=== PATIENT | male | born 1960 | race American Indian/Alaskan Native ===

== ENCOUNTER 2022-07-13 10:18 | Outpatient (CLI) | payer MEDICARE, MEDICAID ==
[~2022-07-13] VITALS: Ht 175.3 cm; Wt 117.9 kg
[2022-07-13] MEDS ORDERED: HYDR25TA5 PO (11:08)
[2022-07-13] MEDS ORDERED: PIOG45TA65 PO (11:08)
[2022-07-13] MEDS ORDERED: ENAL10TA19 PO (11:08)
[2022-07-13] MEDS ORDERED: LABE100T8 PO (11:08)
[2022-07-13] MEDS ORDERED: METF-438 PO (11:08)
[2022-07-13] MEDS ORDERED: ATOR40TA72 PO (11:08)
[2022-07-13] MEDS ORDERED: DULA1.5P SQ (11:08)
[2022-07-13] MEDS ORDERED: HYDR-3972 PO (11:08)
[2022-07-13] MEDS ORDERED: EMPA10TA PO (11:08)
[2022-07-13 11:34] LABS: BASOPHILS # (AUTO) 0.1 X10'3 (0-0.2); EOSINOPHILS # (AUTO) 0.1 X10'3 (0-0.9); LYMPHOCYTES # (AUTO) 2.5 X10'3 (1.1-4.8); LYMPHOCYTES % (AUTO) 28.1 % (21-51); MEAN CORPUSCULAR HGB CONC 33.2 g/dL (33.0-36.5); MEAN CORPUSCULAR VOLUME 90.2 FL (78-98); MEAN PLATELET VOLUME 7.9 FL (7.4-10.4); MONOCYTES # (AUTO) 0.8 X10'3 (0-0.9); MONOCYTES % (AUTO) 8.5 % (2-12); NEUTROPHILS # (AUTO) 5.5 X10'3 (1.8-7.7); NEUTROPHILS % (AUTO) 61.4 % (42-75); PRE OP HEMATOCRIT 49.2 % (42.0-52.0); PRE OP HEMOGLOBIN 16.4 g/dL (14.0-17.9); PRE OP PLATELET COUNT 263 X10'3 (140-440); RED BLOOD COUNT 5.45 X10'6 (4.70-6.10); RED CELL DISTRIBUTION WIDTH 13.6 % (11.5-14.5)
[2022-07-13 11:41] LABS: CLARITY,URINE CLEAR (Clear); COLOR,URINE YELLOW (Yellow); GLUCOSE, URINE >=1000 mg/dl (Neg); KETONES,URINE NEGATIVE (Neg); LEUKOCYTE ESTERASE ,URINE NEGATIVE (Neg); NITRITES, URINE NEGATIVE (Neg); OCCULT BLOOD,URINE NEGATIVE (Neg); PH,URINE 5.5 (4.8-8.0); PROTEIN,URINE NEGATIVE (Neg); UROBILINOGEN,URINE 0.2 E.U/dL (0.2-1.0)
[2022-07-13 11:43] LABS: ALBUMIN 3.9 G/DL (3.4-5.0); ALKALINE PHOSPHATASE 102 IU/L (46-116); BLOOD UREA NITROGEN 15 MG/DL (7-18); BUN/CREATININE RATIO 13.9 (5.4-32.0); CALCIUM 9.1 MG/DL (8.5-10.1); CHLORIDE 103 MMOL/L (99-107); CREATININE 1.08 MG/DL (0.60-1.10); PRE OP ALT 38 U/L (30-65); PRE OP ANION GAP 9 (8-16); PRE OP AST 31 U/L (10-37); PRE OP BILIRUB, TOTAL 1.4 MG/DL (0.0-1.0); PRE OP GLUCOSE 159 MG/DL (70-104); PRE OP POTASSIUM 3.8 MMOL/L (3.4-5.1); PRE OP SODIUM 138 MMOL/L (135-145); TOTAL CARBON DIOXIDE 26.3 MMOL/L (24-32); eGFR 70 ML/MIN
[2022-07-13 11:48] LABS: UA COLLECTION TYPE CLN CATCH MIDSTREAM
[2022-07-13 11:49] LABS: BACTERIA,URINE NONE SEEN /HPF (Neg); RBC,URINE NONE SEEN /HPF (0-2); SQUAMOUS EPITHELIAL CELL,UR NONE SEEN /LPF (FEW); WBC,URINE NONE SEEN /HPF (0-4)
[2022-07-19] MEDS ORDERED: ringers solution, lacted 1,000 ML IV SCH (05:00)
[2022-07-19] MEDS ORDERED: ceFAZolin inj. 2,000 MG in dextrose 5%-water 100 ML IV ONE (05:30)
[2022-07-19] MEDS ORDERED: DOCUMENT DATE & TIME OF BETA-BLOCKER PO ONE (05:30)
[2022-07-19] MEDS ORDERED: famotidine 20mg tablet PO ONE (05:30)
== END 2022-07-13 23:59 | disposition home or self-care (01) ==
LOC: LAB 10:18 → EDSTATUS 07-19 09:15
PROVIDERS: ATTEND Surgery
DX: Z01.818 Encounter for other preprocedural examination (principal); K42.9 Umbilical hernia without obstruction or gangrene; J45.909 Unspecified asthma, uncomplicated; E11.9 Type 2 diabetes mellitus without complications; I10 Essential (primary) hypertension; M19.90 Unspecified osteoarthritis, unspecified site; Z98.890 Other specified postprocedural states; Z88.8 Allergy status to other drugs, medicaments and biological substances; Z79.899 Other long term (current) drug therapy; Z79.84 Long term (current) use of oral hypoglycemic drugs
CPT/HCPCS: 36415; 80053; 81001; 85025; 93005; J7120

== ENCOUNTER 2022-10-04 07:49 | Day surgery (SDC) | payer MEDICARE, MEDICAID ==
[2022-09-26 11:53] LABS: CLARITY,URINE CLEAR (Clear); COLOR,URINE YELLOW (Yellow); GLUCOSE, URINE NEGATIVE (Neg); KETONES,URINE NEGATIVE (Neg); LEUKOCYTE ESTERASE ,URINE NEGATIVE (Neg); NITRITES, URINE NEGATIVE (Neg); OCCULT BLOOD,URINE NEGATIVE (Neg); PH,URINE 5.5 (4.8-8.0); PROTEIN,URINE NEGATIVE (Neg)
[2022-09-26 11:56] LABS: BASOPHILS # (AUTO) 0.1 X10'3 (0-0.2); BASOPHILS % (AUTO) 1.2 % (0-1); EOSINOPHILS # (AUTO) 0.1 X10'3 (0-0.9); EOSINOPHILS % (AUTO) 1.3 % (0-6); LYMPHOCYTES # (AUTO) 2.3 X10'3 (1.1-4.8); LYMPHOCYTES % (AUTO) 33.4 % (21-51); MEAN CORPUSCULAR HEMOGLOBIN 30.3 PG (27.0-31.0); MEAN CORPUSCULAR HGB CONC 33.7 g/dL (33.0-36.5); MEAN PLATELET VOLUME 8.3 FL (7.4-10.4); MONOCYTES # (AUTO) 0.6 X10'3 (0-0.9); MONOCYTES % (AUTO) 8.1 % (2-12); NEUTROPHILS # (AUTO) 3.9 X10'3 (1.8-7.7); PRE OP HEMATOCRIT 46.4 % (42.0-52.0); PRE OP HEMOGLOBIN 15.6 g/dL (14.0-17.9); PRE OP PLATELET COUNT 186 X10'3 (140-440); RED BLOOD COUNT 5.15 X10'6 (4.70-6.10); RED CELL DISTRIBUTION WIDTH 13.5 % (11.5-14.5)
[2022-09-26 12:06] LABS: UA COLLECTION TYPE CLN CATCH MIDSTREAM
[2022-09-26 12:08] LABS: ALBUMIN/GLOBULIN RATIO 1.1 (1.1-1.5); ALKALINE PHOSPHATASE 108 IU/L (46-116); BLOOD UREA NITROGEN 20 MG/DL (7-18); BUN/CREATININE RATIO 21.1 (10.0-20.0); CHLORIDE 102 MMOL/L (99-107); CREATININE 0.95 MG/DL (0.60-1.10); PRE OP ALT 27 U/L (30-65); PRE OP ANION GAP 6 (8-16); PRE OP AST 24 U/L (10-37); PRE OP BILIRUB, TOTAL 2.6 MG/DL (0.0-1.0); PRE OP GLUCOSE 122 MG/DL (70-104); PRE OP POTASSIUM 3.9 MMOL/L (3.4-5.1); PRE OP SODIUM 135 MMOL/L (135-145); TOTAL CARBON DIOXIDE 27.5 MMOL/L (24-32); TOTAL PROTEIN 7.8 G/DL (6.4-8.2); eGFR 81 ML/MIN
[~2022-10-04] VITALS: Ht 175.3 cm; Wt 121.7 kg
[~2022-10-04 07:49] MED LIST: ATOR40TA72 PO; CHOL100046 PO; DOCUMENT DATE & TIME OF BETA-BLOCKER PO ONE; DULA1.5P SQ; ENAL-78 PO; HYDR-3972 PO; HYDR25TA5 PO; LABE100T8 PO; METF-438 PO; PIOG45TA65 PO; cefazolin 2gm/D5W 100mL 100 ML IV ONE; famotidine 20mg tablet PO ONE; ringers solution, lacted 1,000 ML IV SCH
[2022-10-04 07:55] VITALS: BP 109/72
[2022-10-04] MEDS ORDERED: BUPIVAcaine/PF 2.5 mg/ml (0.25%) 30ml vial ONE (14:51)
[2022-10-04] MEDS ORDERED: dexamethasone sod phosphate 10mg/ml inj ONE (15:40)
[2022-10-04] MEDS ORDERED: glycopyrrolate 0.2mg/ml inj ONE (15:40)
[2022-10-04] MEDS ORDERED: sevoflurane 250ml liquid IH ONE (15:40)
[2022-10-04] MEDS ORDERED: rocuronium 10mg/ml inj IV ONE ×2 (15:40→15:57)
[2022-10-04] MEDS ORDERED: neostigmine methylsulfate 1 MG/ML 10ml vial ONE (15:40)
[2022-10-04] MEDS ORDERED: midazolam 1 mg/ML 2ml injection ONE (15:48)
[2022-10-04] MEDS ORDERED: fentaNYL/PF 50MCG/1 ML 2ML syringe ONE ×2 (15:48→16:54)
[2022-10-04] MEDS ORDERED: propofol inj 20 ML IV ONE (15:57)
[2022-10-04] MEDS ORDERED: LIDOcaine 2% (20mg/ml) 5ml vial ONE (15:57)
[2022-10-04] MEDS ORDERED: ondansetron/PF 4mg/2ml inj ONE (15:57)
[2022-10-04] MEDS ORDERED: acetaminophen 1,000mg/100ml IV 100 ML IV ONE (16:03)
[2022-10-04] MEDS ORDERED: morphine 4 MG/ML inj SYRINge IV PRN (16:15)
[2022-10-04] MEDS ORDERED: fentaNYL/PF 50MCG/1 ML 2ML syringe IV PRN (16:15)
[2022-10-04] MEDS ORDERED: ringers solution, lacted 1,000 ML IV SCH (16:15)
[2022-10-04] MEDS ORDERED: labetalol 20mg/4ml (5mg/ml) syringe IV PRN (16:15)
[2022-10-04] MEDS ORDERED: morphine 2 MG/ML inj. syringe IV PRN (16:15)
[2022-10-04] MEDS ORDERED: ondansetron/PF 4mg/2ml inj IV PRN (16:15)
[2022-10-04] MEDS ORDERED: hydrALAZINE 20mg/ml inj. IV PRN (16:15)
[2022-10-04] MEDS ORDERED: labetalol 20mg/4ml (5mg/ml) syringe IV ONE ×2 (16:32→17:03)
[2022-10-04] MEDS ORDERED: mupirocin 2% ointment 22GM ONE (17:14)
[2022-10-04] MEDS ORDERED: sugammadex 200mg/2ml injection IV ONE (17:22)
[2022-10-04 17:35] VITALS: BP 146/96
--- NOTE | 2022-10-04 17:35 | NUR ---
Received from OR via BED, accompanied by Anesthesiologist and report given by Anesthesiologist. PATIENT WAKING UP, NO S/S OF PAIN, V/S WNL, SCD ON, 20G TO RUE, ABDOMEN LAP SITE CDI AND ISLAND DRESSING WELL. BG 103
[2022-10-04 17:45] VITALS: BP 136/82
[2022-10-04] MEDS: fentaNYL/PF 50MCG/1 ML 2ML syringe IV PRN ×2 (17:48→17:52)
[2022-10-04 17:55] VITALS: BP 145/93
[2022-10-04 18:05] VITALS: BP 143/92
[2022-10-04 18:15] VITALS: BP 132/84
--- NOTE | 2022-10-04 18:15 | NUR ---
PATIENT A&OX4, 10/09 PAIN, V/S WNL, SCD OFF, 20G TO RUE D/C, ABDOMEN LAP SITE CDI AND ISLAND DRESSING WELL. BG 103.I HAVE REVIEWED D/C INSTRUCTIONS WITH PATIENT and they have verbalized understanding patient d/c home with all belongings and family gave transport home.
== END 2022-10-04 18:15 | disposition home or self-care (01) ==
LOC: PAS 07:49
PROVIDERS: ATTEND Surgery
DX: K42.0 Umbilical hernia with obstruction, without gangrene (principal); I10 Essential (primary) hypertension; E11.9 Type 2 diabetes mellitus without complications; M19.90 Unspecified osteoarthritis, unspecified site; J45.909 Unspecified asthma, uncomplicated; E66.9 Obesity, unspecified; Z68.39 Body mass index [BMI] 39.0-39.9, adult; Z87.891 Personal history of nicotine dependence; Z98.890 Other specified postprocedural states; Z79.899 Other long term (current) drug therapy; Z79.84 Long term (current) use of oral hypoglycemic drugs; Z88.8 Allergy status to other drugs, medicaments and biological substances
CPT/HCPCS: 36415; 49594; 80053; 81003; 82948; 85025; C1781; J0131; J0690; J1100; J2250; J2405; J2704; J2710; J3010; J3490; J7030; J7120; Z7506; Z7508; Z7512; A4618; A7000